=== PATIENT | female | born 1970 | race Caucasian/White ===

== ENCOUNTER 2016-12-12 21:39 | Emergency (ER) | payer OTHER ==
--- NOTE | ~2016-12-12 | CR63 ---
[facility] A Service of [facility] & [facility] RADIOLOGY TEXT RESULTS PATIENT: NEIDA BERNAL LOCATION: SED : 70 UNIT #: [id number] AGE: [address]: Adan Mathur DO SEX: F ORDER DR: [id number] [place] [id number] E MR#: [id number] Acc #: [id number] NAME: NEIDA BERNAL : 1970 SEX: F STUDY DATE/TIME: 12/12/2016 23:44 UNIT: SED ROOM: STUDY DESCRIPTION: CR Chest 2 View Attending Physician: Adan Mathur D.O. Ordering Physician: Adan Mathur D.O. Primary Care Physician: Gavi Rouse M.D. MEDICAL IMAGING REPORT This report is preliminary unless electronic signature is present. EXAM Two-view chest INDICATIONS Shortness of air for the past 4 days. PROCEDURE Frontal and lateral views of the chest. COMPARISON 07/25/2016 FINDINGS Heart size is normal. No dense consolidation, effusion or pneumothorax. IMPRESSION No active process. Dictated by... Dexter Mayers M.D. THIS IS AN ELECTRONICALLY VERIFIED REPORT Dexter Mayers M.D. at 12/17/2016 7:30 AM EED/rita TD: 12/13/2016 02:01 JOB #: [id number] MEDICAL IMAGING REPORT Page 1 of 1
--- NOTE | ~2016-12-12 | EKG ---
PATIENT: NEIDA BERNAL UNIT #: [id number] Ventricular Rate: 88 BPM Atrial Rate: 88 BPM P-R Interval: 158 ms QRS Duration: 78 ms Q-T Interval: 370 ms QTC Calculation(Bezet): 447 ms P Dumas: 56 degrees Calculated R Dumas: -7 degrees Calculated T Dumas: 44 degrees Diagnosis Line: Normal sinus rhythm Diagnosis Line: Normal ECG Diagnosis Line: When compared with ECG of 19-MAY-2016 23:03, Diagnosis Line: No significant change was found Diagnosis Line: Confirmed by JASPER SEVILLA MD ([id number]) on 12/19/2016 Diagnosis Line: 7:58:48 PM INTERPRETING MD: DI AMAYA
--- NOTE | ~2016-12-12 | US84 ---
[id number] [address] [address] [id number] E MR#: [id number] Acc #: [id number] NAME: NEIDA BERNAL : 1970 SEX: F STUDY DATE/TIME: 12/12/2016 22:03 UNIT: SED ROOM: STUDY DESCRIPTION: US LE Veins Complete Merrill Stdy Attending Physician: Adan Mathur D.O. Ordering Physician: Adan Mathur D.O. Primary Care Physician: Gavi Rouse M.D. MEDICAL IMAGING REPORT This report is preliminary unless electronic signature is present. EXAM Bilateral lower extremity venous Doppler. INDICATION Bilateral lower extremity swelling and shortness of air for the past 4 days. PROCEDURE Daniels-scale, color Doppler, spectral imaging deep veins of the right and left leg. COMPARISON None. FINDINGS Deep veins right and left leg compress normally, and show normal color Doppler and spectral characteristics. IMPRESSION No evidence for DVT in the right or left leg. Dictated by... Dexter Mayers M.D. THIS IS AN ELECTRONICALLY VERIFIED REPORT Dexetr Mayers M.D. at 12/17/2016 7:30 AM CONNIED/lilian TD: 12/13/2016 01:36 JOB #: [id number] MEDICAL IMAGING REPORT Page 1 of 1
--- NOTE | ~2016-12-12 | CT16 ---
[facility] A Service [facility] RADIOLOGY TEXT RESULTS PATIENT: NEIDA BERNAL LOCATION: SED : 70 UNIT #: [id number] AGE: [address]: Adan Mathur DO SEX: F ORDER DR: [id number] [place] [id number] E MR#: [id number] Acc #: [id number] NAME: NEIDA BERNAL : 1970 SEX: F STUDY DATE/TIME: 12/13/2016 0:49 UNIT: SED ROOM: STUDY DESCRIPTION: CT Angio Chest for PE Attending Physician: Adan Mathur D.O. Ordering Physician: Adan Mathur D.O. Primary Care Physician: Gavi Rouse M.D. MEDICAL IMAGING REPORT This report is preliminary unless electronic signature is present. EXAM CTA chest PE protocol. INDICATION Shortness of air and wheezing with elevated D-dimer level today. PROCEDURE Contrast-enhanced CTA of the chest attention on opacification of the pulmonary arteries. Coronal 3-D MIP sagittal reformatted images are submitted. 80 mL of Isovue-370. This CT exam was performed with one or more of the following radiation dose reduction techniques: automatic exposure control, adjustment of mA and/or kV according to patient size, and iterative reconstruction. COMPARISON None. FINDINGS Degraded by body habitus. No definitive evidence for pulmonary embolus or acute aortic injury. Probable hepatic steatosis. No acute findings in the included upper abdomen. The lungs are clear. No aggressive-appearing bone lesion. IMPRESSION No acute findings. No evidence for pulmonary embolus. The lungs are clear. Dictated by... Dexter Mayers M.D. [facility] A Service [facility] RADIOLOGY TEXT RESULTS PATIENT: NEIDA BERNAL LOCATION: SED : 70 UNIT #: [id number] AGE: [address]: Adan Mathur DO SEX: F ORDER DR: THIS IS AN ELECTRONICALLY VERIFIED REPORT Dexter Mayers M.D. at 12/17/2016 7:30 AM FERNANDEZ/lilian TD: 12/13/2016 03:27 JOB #: [id number] MEDICAL IMAGING REPORT Page 1 of 1
[~2016-12-12 21:39] MED LIST: ALBUTEROL17 GM; AMOXIL875 MG PO; BLACK COHOSH40 M1 PO; CALCIUM MAGNESI1 TA1 PO; CALCIUM,MAG, ZINC PO; CATAPRES0.1 MG; CELEXA20 MG PO; CIPRO PO; CITALOPRAM HBR40 MG PO; CLARITIN10 M2; CYMBALTA; DICLOFENAC PO; DULERA 100 MCG/13 GM; EQUATE PO; FISH OIL 1,001000 MG PO; FLEXERIL10 MG PO; GLUCOSAMINE & C1 CAP PO; GLUCOSAMINE PO; IBUPROFEN800 MG PO; LASIX PO; LISINOPRIL; LISINOPRIL-HCTZ1 T14 PO; LYRICA75 MG PO; MEDROL4 MG/DOSE- PO; MELATONIN1 MG; MOBIC15 MG PO; NAPROXEN SODIU550 MG PO; NEURONTIN PO; NEURONTIN800 MG DOB; PHENERGAN25 MG PO; POTASSIUM99 M1 PO; PREDNISONE PO; PRILOSEC20 M1 PO; PRILOSEC20 MG PO; PROVERA5 MG PO; SAVELLA1 EACH PO; SKELAXIN PO; TAMIFLU75 M1 PO; TRAZODONE; TYLENOL #3 PO; ULTRAM PO; VICODIN 5/1 TAB 5/50 PO; VICODIN 5/500 T1 TAB PO; VITAMIN D1000 UNIT PO; VITAMIN D2000 UNIT PO; VITAMIN D31000 UNI1 PO; ZOFRAN PO; [UNRECOGNIZED DRUG - OTHER] PO
[2016-12-12 23:29] LABS: BASOPHIL% 0.3 % (0-2.5); EOSINOPHIL# 0.3 X10e3 (0-0.7); EOSINOPHIL% 3.3 % (0.0-7.0); HEMATOCRIT 40.3 % (35.0-45.0); HEMOGLOBIN 13.5 gm/dL (12.0-16.0); LYMPHOCYTE# 3.7 X10e3 (1.0-3.5); LYMPHOCYTE% 41.7 % (17.0-45.0); MEAN CORPUSCULAR HEMOGLOBIN 29.4 PG (28-34); MEAN CORPUSCULAR HGB CONC 33.4 g/dL (30-36); MEAN PLATELET VOLUME 8.9 FL (6.5-11.5); MONOCYTE# 0.6 X10e3 (0-1.0); MONOCYTE% 7.1 % (3.0-12.0); NEUTROPHIL# 4.2 X10e3 (1.5-7.1); NEUTROPHIL% 47.6 % (40-75); PLATELET COUNT 273 X10e3 (140-420); RED BLOOD COUNT 4.58 X10e (3.90-5.30); RED CELL DISTRIBUTION WIDTH 14.3 % (11.0-15.5); WHITE BLOOD COUNT 8.8 X10e3 (4.0-10.5)
[2016-12-12 23:30] LABS: DIFF IND NO
[2016-12-12 23:45] LABS: ALBUMIN SERUM 3.9 g/dL (3.5-5.0); BILIRUBIN,TOTAL 0.3 mg/dL (0.2-2.0); BUN/CREATININE RATIO 13.75; CREATININE SERUM 0.8 mg/dL (0.6-1.4); GLOM FILT RATE Estimated 88.5 mL/min (>60); POTASSIUM 3.9 mmol/L (3.5-5.1); PROTEIN TOTAL SERUM 7.3 g/dL (6.0-8.3)
[2016-12-12 23:49] LABS: POC - TROPONIN <0.05 ng/mL (<=0.05)
[2016-12-12 23:51] LABS: INR 1.1; PARTIAL THROMBOPLASTIN TIME 28.7 SECONDS (23.5-31.3); PROTHROMBIN TIME (PATIENT) 11.7 SECONDS (9.6-11.5)
[2016-12-13 01:10] LABS: POC - CKMB 1.5 ng/mL (0.0-7.9); POC - MYOGLOBIN 98.5 ng/mL (0.0-169.0); POC - TROPONIN <0.05 ng/mL (<=0.05)
== END 2016-12-13 04:39 | disposition home or self-care (01) ==
LOC: SED 21:39
PROVIDERS: Emergency Medicine
DX: L03.116 Cellulitis of left lower limb (principal); L03.115 Cellulitis of right lower limb; J20.9 Acute bronchitis, unspecified; K21.9 Gastro-esophageal reflux disease without esophagitis; F41.9 Anxiety disorder, unspecified; Z88.5 Allergy status to narcotic agent; Z91.040 Latex allergy status; Z79.899 Other long term (current) drug therapy
CPT/HCPCS: 36415; 71020; 71275; 80053; 82553; 83874; 83880; 84484; 85025; 85379; 85610; 85730; 93005; 93970; 96365; 99284; J0696; Q9967

== ENCOUNTER 2017-05-06 21:59 | Emergency (ER) | payer OTHER ==
[~2017-05-06] VITALS: Ht 172.7 cm; Wt 162.4 kg
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
== END 2017-05-07 01:19 | disposition home or self-care (01) ==
LOC: CED 21:59
DX: S76.012A Strain of muscle, fascia and tendon of left hip, initial encounter (principal); S20.219A Contusion of unspecified front wall of thorax, initial encounter; S80.12XA Contusion of left lower leg, initial encounter; F32.9 Major depressive disorder, single episode, unspecified; F41.9 Anxiety disorder, unspecified; Z88.8 Allergy status to other drugs, medicaments and biological substances; Z88.5 Allergy status to narcotic agent; Z79.899 Other long term (current) drug therapy; Z91.040 Latex allergy status; V49.40XA Driver injured in collision with unspecified motor vehicles in traffic accident, initial encounter
CPT/HCPCS: 71020; 73502; 73562; 96372; 99285; J1885

== ENCOUNTER 2017-05-10 17:51 | Emergency (ER) | payer OTHER ==
[~2017-05-10] VITALS: Ht 172.7 cm; Wt 167.8 kg
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
[2017-05-10] MEDS ORDERED: HYDROXYZINE HCL10 MG PO (18:03)
== END 2017-05-10 20:04 | disposition home or self-care (01) ==
LOC: SED 17:51
DX: M54.5 Low back pain (principal); R51 Headache; V49.60XA Unspecified car occupant injured in collision with unspecified motor vehicles in traffic accident, initial encounter; Y92.410 Unspecified street and highway as the place of occurrence of the external cause
CPT/HCPCS: 70450; 72100; 96372; 99284; J1885